=== PATIENT | female | born 1955 | race Hispanic/Latino ===

== ENCOUNTER 2018-02-02 19:20 | Emergency (ER) | payer OTHER ==
[2018-02-02] MEDS ORDERED: HYDROCODONE/ACETAMINOPHEN 7.5/325 MG 15 ML UDCUP ONE (19:34)
== END 2018-02-02 20:50 | disposition home or self-care (01) ==
LOC: EDH 19:20
DX: M62.838 Other muscle spasm (principal); M54.5 Low back pain; M25.559 Pain in unspecified hip; M54.2 Cervicalgia; I10 Essential (primary) hypertension; E78.5 Hyperlipidemia, unspecified; V49.49XA Driver injured in collision with other motor vehicles in traffic accident, initial encounter; Y93.89 Activity, other specified; Y92.89 Other specified places as the place of occurrence of the external cause; Y99.8 Other external cause status
CPT/HCPCS: 71045; 72040; 72100; 72170; 93005

== ENCOUNTER 2018-02-04 18:05 | Emergency (ER) | payer OTHER ==
[2018-02-04 19:59] LABS: APPEARANCE,URINE Clear (CLEAR); BILIRUBIN,URINE Negative (NEGATIVE); COLOR,URINE Yellow (YELLOW); GLUCOSE, URINE (UA) Negative (NEGATIVE); KETONES,URINE Negative (NEGATIVE); LEUKOCYTE ESTERASE ,URINE Small (NEGATIVE); NITRATE,URINE Positive (NEGATIVE); OCCULT BLOOD,URINE Nonhemolyzed Trace (NEGATIVE); PROTEIN,URINE Negative (NEGATIVE)
[2018-02-04 20:00] LABS: BASOPHILS % (AUTO) 0.5 % (0.0-5.0); EOSINOPHILS % (AUTO) 2.2 % (0.0-8.0); HEMATOCRIT 41.8 % (36-48); MEAN CORPUSCULAR HEMOGLOBIN 28.4 pg (27.0-33.0); MEAN CORPUSCULAR HGB CONC 33.8 g/dL (32.0-36.0); MEAN CORPUSCULAR VOLUME 84.1 fL (79-99); MONOCYTES % (AUTO) 7.7 % (3.0-13.0); NEUTROPHILS % (AUTO) 40.6 % (40.0-77.0); PLATELET COUNT (AUTO) 274 K/uL (130-400); RED BLOOD CELL COUNT(AUTO) 4.97 MIL/uL (4.00-5.50); RED CELL DISTRIBUTION WIDTH 13.9 % (11.0-15.5); WHITE BLOOD COUNT (AUTO) 9.1 K/uL (4.8-10.8)
[2018-02-04 20:09] LABS: CREATININE 0.8 mg/dL (0.5-1.5); POTASSIUM 3.9 mmol/L (3.5-5.1)
[2018-02-04 20:13] LABS: ALBUMIN 4.1 g/dL (3.5-5.0); BILIRUBIN,TOTAL 0.4 mg/dL (0.2-1.0); TOTAL PROTEIN, SERUM 7.7 g/dL (6.0-8.3)
[2018-02-04 20:17] LABS: BACTERIA,URINE Many /HPF (None Seen); SQUAMOUS EPITHELIAL CELL,UR None Seen /HPF (0-2)
[2018-02-04] MEDS ORDERED: SULFAMETHOX-TMP DS 800/160 TAB ONE (21:08)
== END 2018-02-04 21:17 | disposition home or self-care (01) ==
LOC: EDH 18:05
DX: S40.022A Contusion of left upper arm, initial encounter (principal); S40.021A Contusion of right upper arm, initial encounter; F07.81 Postconcussional syndrome; N30.00 Acute cystitis without hematuria; M54.2 Cervicalgia; M54.9 Dorsalgia, unspecified; I10 Essential (primary) hypertension; E78.5 Hyperlipidemia, unspecified; V49.49XA Driver injured in collision with other motor vehicles in traffic accident, initial encounter; Y93.89 Activity, other specified; Y92.89 Other specified places as the place of occurrence of the external cause; Y99.8 Other external cause status
CPT/HCPCS: 36415; 70450; 80053; 81001; 82550; 83690; 85025; 93005

== ENCOUNTER 2018-05-02 19:41 | Emergency (ER) | payer OTHER ==
[2018-05-02] MEDS ORDERED: ACETAMINOPHEN EXTRA STRENGTH 500 MG TABLET ONE (19:58)
[2018-05-02] MEDS ORDERED: DEXAMETHASONE SOD PHOSPHATE 10MG/ML 1ML VIAL ONE (19:58)
[2018-05-02] MEDS ORDERED: GUAIFENESIN-DM 200/20 MG 10 ML ONE (19:59)
[2018-05-02] MEDS ORDERED: ALBUTEROL SULFATE 0.083% 2.5 MG/3 ML INH IH ONE (20:01)
== END 2018-05-02 21:14 | disposition home or self-care (01) ==
LOC: EDH 19:41
DX: J20.9 Acute bronchitis, unspecified (principal); I10 Essential (primary) hypertension; K21.9 Gastro-esophageal reflux disease without esophagitis; E78.5 Hyperlipidemia, unspecified
CPT/HCPCS: 71046; 87804 ×2; 94640; 96372; 99284; J1100

== ENCOUNTER 2018-06-08 19:32 | Emergency (ER) | payer OTHER, MEDICARE ==
[2018-06-08 20:27] LABS: BASOPHILS % (AUTO) 0.6 % (0.0-5.0); EOSINOPHILS % (AUTO) 0.7 % (0.0-8.0); HEMATOCRIT 40.6 % (36-48); LYMPHOCYTES % (AUTO) 50.4 % (21.0-51.0); MEAN CORPUSCULAR HEMOGLOBIN 27.7 pg (27.0-33.0); MEAN CORPUSCULAR HGB CONC 32.9 g/dL (32.0-36.0); MEAN CORPUSCULAR VOLUME 84.2 fL (79-99); MONOCYTES % (AUTO) 7.2 % (3.0-13.0); NEUTROPHILS % (AUTO) 41.1 % (40.0-77.0); PLATELET COUNT (AUTO) 281 K/uL (130-400); RED BLOOD CELL COUNT(AUTO) 4.82 MIL/uL (4.00-5.50); RED CELL DISTRIBUTION WIDTH 14.2 % (11.0-15.5); WHITE BLOOD COUNT (AUTO) 7.6 K/uL (4.8-10.8)
[2018-06-08 20:40] LABS: INR 0.97 (0.85-1.15); PARTIAL THROMBOPLASTIN TIME 28.9 SEC (26.3-35.5); PROTHROMBIN TIME 10.2 SEC (9.6-11.6)
[2018-06-08 20:45] LABS: CREATININE 0.7 mg/dL (0.5-1.5); POTASSIUM 4.3 mmol/L (3.5-5.1)
[2018-06-08 20:47] LABS: ALBUMIN 4.2 g/dL (3.5-5.0); BILIRUBIN,TOTAL 0.4 mg/dL (0.2-1.0); TOTAL PROTEIN, SERUM 7.6 g/dL (6.0-8.3)
[2018-06-08 20:53] LABS: B-TYPE NATRIURETIC PEPTIDE 17 pg/mL (0-100)
== END 2018-06-08 22:01 | disposition home or self-care (01) ==
LOC: EDH 19:32
DX: I10 Essential (primary) hypertension (principal); F41.1 Generalized anxiety disorder; E78.5 Hyperlipidemia, unspecified; K21.9 Gastro-esophageal reflux disease without esophagitis
CPT/HCPCS: 36415; 80053; 82550; 83880; 84484; 85025; 85610; 85730; 93005

== ENCOUNTER 2024-04-23 13:38 | Emergency (ER) | payer MEDICARE, OTHER ==
[~2024-04-23] VITALS: Ht 154.9 cm; Wt 66.5 kg
[2024-04-23 14:25] LABS: BASOPHILS # (AUTO) 0.05 K/uL (0.00-0.20); BASOPHILS % (AUTO) 0.5 % (0.0-5.0); EOSINOPHILS % (AUTO) 2.2 % (0.0-8.0); IMMATURE GRANULOCYTE ABSOLUTE 0.03 K/uL (0-1); LYMPHOCYTES # (AUTO) 3.3 K/uL (1.0-4.8); LYMPHOCYTES % (AUTO) 36.2 % (21.0-51.0); MEAN CORPUSCULAR HEMOGLOBIN 28.5 pg (27.0-33.0); MEAN CORPUSCULAR HGB CONC 33.5 g/dL (32.0-36.0); MEAN CORPUSCULAR VOLUME 85.1 fL (79-99); MONOCYTES # (AUTO) 0.7 K/uL (0.1-1.0); MONOCYTES % (AUTO) 7.9 % (3.0-13.0); NEUTROPHILS # (AUTO) 4.8 K/uL (1.8-7.7); NEUTROPHILS % (AUTO) 52.9 % (40.0-77.0); PLATELET COUNT (AUTO) 296 K/uL (130-400); RED BLOOD CELL COUNT(AUTO) 5.05 MIL/uL (4.00-5.50); RED CELL DISTRIBUTION WIDTH 13.4 % (11.0-15.5); WHITE BLOOD COUNT (AUTO) 9.1 K/uL (4.8-10.8)
[2024-04-23 14:33] LABS: CREATININE 0.9 mg/dL (0.5-1.0); POTASSIUM 3.7 mmol/L (3.5-5.1)
[2024-04-23 14:42] LABS: ALBUMIN 3.7 g/dL (3.5-5.0); BILIRUBIN,DIRECT 0.1 mg/dL (0.0-0.3); BILIRUBIN,TOTAL 0.5 mg/dL (0.2-1.0); TOTAL PROTEIN, SERUM 7.3 g/dL (6.0-8.3)
--- NOTE | 2024-04-23 14:54 | ERN ---
ED Note History of Present Illness Stated Complaint: NAUSEA Chief Complaint: Nausea,Vomiting,Diarrhea Time Seen by MD: 13:55 Dictation: 69-year-old female presents to the ED for evaluation of nausea onset 2 days ago. Patient reports decreased oral intake, but denies any vomiting, diarrhea, chest pain or shortness a breath at this time. Allergies: Coded Allergies: No Known Drug Allergies (Unverified Allergy, Unknown, 04/23/24) Home Meds Active Scripts Ondansetron (Ondansetron Odt) 4 Mg Tab.rapdis, 4 MG PO BID for vomiting for 5 Days, #10 TAB Prov:ANNE MOODY MD 04/23/24 Past Medical History Past Medical History: High Cholesterol, Hypertension Surgical History: None Review of System Dictation Constitutional: Positive for decreased oral intake Negative for fever,chills, and weight loss Eyes: Negative for injury, pain,redness, and discharge ENT: Negative for injury,pain or swelling Cardiovascular: Negative for chest pain, palpitations, and edema Respiratory: Negative for shortness of breath, cough, and wheezing, Abdomen/GI: Positive for nausea Negative for abdominal pain, vomiting, diarrhea, and constipation Back: Negative for injury and pain : Negative for injury, bleeding and discharge MS/Extremity: Negative for injury and deformity Skin: Negative for rash, and discoloration Neuro: Negative for headache, weakness, numbness, tingling, and seizure Psych: Negative for suicide ideation, homicidal ideation, and hallucinations Initial Vital Sign VS Vital Signs Date Time Temp Pulse Resp B/P (MAP) Pulse Ox O2 Delivery O2 Flow Rate FiO2 04/23/24 13:42 97.2 68 16 154/85 100 Room Air 0 04/23/24 13:47 21 Physical Exam Dictation General: awake, alert, NAD Head/Face: Normocephalic, atraumatic Eyes: PERRL, EOMI, vision at baseline ENT: oral cavity clear, TMs clear, no signs of infection Neck: Trachea midline, supple, no nuchal rigidity Cardiovascular: RRR, normal S1/S2, No MRGs, no JVD Respiratory: CTAB, no respiratory distress, No rales or wheezes Abdomen: Soft, non-tender, non-distended, normal bowel sounds, no guarding or rebound. Skin: Warm, dry, normal turgor, no rash MS/Extremity: Pulses equal, no cyanosis, neurovascular intact, FROM Neuro: COAx4, GCS 15, strength 5/5, CN 2-12 intact, normal cerebellar exam, normal gait, Psych: Normal behavior, mood, and affect normal Results (Laboratory/Radiology) Laboratory/Radiology Labs Reviewed?: Yes EKG Comment: EKG 03/27/2024 time 4:51 p.m. ventricular rate 59, NY 150, QRS D 89, QT 446. Sinus rhythm. No STEMI ED Course ED Course Medical Decision Making MDM MDM: Differential diagnosis: Nausea, epigastric pain, gastroenteritis Previous outside records reviewed: Old ER visits. Need for hospitalization: Patient does not meet criteria for hospitalization. Need for emergency major/minor surgery: No Patient's prior external medical records from other ER visits were reviewed by me as indicated. Prior testing and results from previous visits were reviewed. Prior tests were taken into account with medical decision making and resource utilization, independent historian/historians were used to obtain complete medical history. I independently interpreted the test that were performed, results were reviewed by me and considered findings on radiology if ordered. Medical management and examination interpretation discussions were had by me with other qualified healthcare professionals as indicated for the patient's care. DX & DISP Disposition: Discharge Departure Impression: Primary Impression: Acute gastroenteritis Condition: Stable Scripts Ondansetron (Ondansetron Odt) 4 Mg Tab.rapdis 4 MG PO BID for vomiting for 5 Days, #10 TAB Prov: ANNE MOODY MD 04/23/24 Referrals: CELI PAGAN MD (PCP) ANNE MOODY MD Apr 23, 2024 14:54
[2024-04-23] MEDS: ondanSETRON 4MG INJ IVP ONE (15:25)
[2024-04-23] MEDS: 0.9%NACL 1000ML 1,000 ML IV ONE (15:26)
[2024-04-23 15:54] LABS: APPEARANCE,URINE CLEAR (CLEAR); BILIRUBIN,URINE NEGATIVE (NEGATIVE); COLOR,URINE COLORLESS (YELLOW); GLUCOSE, URINE (UA) NEGATIVE (NEGATIVE); KETONES,URINE NEGATIVE (NEGATIVE); LEUKOCYTE ESTERASE ,URINE NEGATIVE Leu/uL (NEGATIVE); NITRATE,URINE NEGATIVE (NEGATIVE); OCCULT BLOOD,URINE NEGATIVE (NEGATIVE); PH,URINE 5.5 (5.0-8.0); PROTEIN,URINE NEGATIVE (NEGATIVE); UROBILINOGEN,URINE 0.2 mg/dL (0.2-1.0)
[2024-04-23 15:57] LABS: ADD UA MICROSCOPIC YES
[2024-04-23 15:59] LABS: MUCUS,URINE RARE LPF (None Seen); RBC,URINE 0-1 /HPF (0-1); SQUAMOUS EPITHELIAL CELL,UR FEW /HPF (0-2)
--- NOTE | 2024-04-23 16:38 | HMCIMG ---
CT ABD/PEL WO CON RENAL/APPY REASON: flank pain COMPARISON: None. FINDINGS: Lung bases are clear. There are no focal liver lesions. There are normal-appearing kidneys.. Spleen and pancreas appear unremarkable. The gallbladder appears normal as well. Bowel loops appear unremarkable. This includes normal appearance of the appendix There is no evidence of free fluid or intraperitoneal air. There are no focal fluid collections. Aorta and retroperitoneum appear normal as do pelvic soft tissue structures. The anterior abdominal wall is intact. Osseous structures appear unremarkable. IMPRESSION: 1. Negative noncontrast CT abdomen and pelvis. CT was performed with one or more following dose reduction techniques: automated exposure control, adjustment of the mA and kv according to patient's size, or use of a iterative reconstruction technique.
[2024-04-23] MEDS ORDERED: ONDA-243 PO (16:53)
[2024-04-23 17:30] VITALS: BP 141/68; PULSE 72; RESP 18; TEMP 97.2; O2SAT 100
--- NOTE | 2024-04-24 07:50 | EKG ---
[facility] Test Date: 2024-04-23 Test Time: 16:51:04 Pat Name: LEENA REYNOLDS Department: ED Room: Gender: F Merchandise Support Associate: [id number] : 1955 Requested By: ANNE MOODY Order Number: [id number] Reading MD: Huan Marlow Measurements Intervals [place] Rate: 59 P: 38 SD: 158 QRS: -2 QRSD: 89 T: 41 QT: 446 QTc: 442 Interpretive Statements Sinus rhythm Compared to ECG 06/08/2018 20:04:37 No significant changes Electronically Signed On 04-24-2024 15:43:39 HOT MAN by Huan Marlow Please click the below link to view image of tracing.
== END 2024-04-23 17:44 | disposition home or self-care (01) ==
LOC: EDH 13:38
DX: K52.9 Noninfective gastroenteritis and colitis, unspecified (principal); E78.00 Pure hypercholesterolemia, unspecified; I10 Essential (primary) hypertension
CPT/HCPCS: 99285; 74176; 96374; 96361; 80076; 84484; 80048; 83690; 85025; 81001; 36415; 93005; J7030; J2405

== ENCOUNTER 2025-04-23 09:05 | Emergency (ER) | payer MEDICARE ==
[~2025-04-23] VITALS: Ht 149.9 cm; Wt 64.9 kg
[~2025-04-23 09:05] MED LIST: ONDA-243 PO
--- NOTE | 2025-04-23 10:15 | ERN ---
ED Note History of Present Illness Stated Complaint: DIZZINESS Chief Complaint: Dizzy/Light Headed Time Seen by MD: 10:04 Dictation: PATIENT IS A 70-YEAR-OLD FEMALE COMING IN TODAY WITH LEFT EAR PAIN WITH THE DIZZINESS WITH NAUSEA VOMITING FOR THE LAST TWO WEEKS. SHE DENIES ANY HEADACHE SHE HAS HAD NO FEVER. DENIES CHEST PAIN BACK PAIN SOB STATES SHE HAS BEEN TO A LOCAL URGENT CARE X2 AND STILL AND STATES SHE WAS EXAMINED BY THE DOCTOR HE LOOKED IN HER EAR AND SAID NOTHING WAS GOING ON HE DID NOT DO ANY LAB TESTING OR EKG. SHE STATES HE DID NOT PRESCRIBE ANY MEDICATIONS FOR THE DIZZINESS VERTIGO AND TOLD HER SHE NEEDED AN ENT. NIH IS 0 ON APPROACH. Allergies: Coded Allergies: No Known Drug Allergies (Unverified Allergy, Unknown, 04/23/24) Home Meds Active Scripts Ondansetron (Ondansetron Odt) 4 Mg Tab.rapdis, 4 MG PO BID for vomiting for 5 Days, #10 TAB Prov:ANNE MOODY MD 04/23/24 Past Medical History Past Medical History: High Cholesterol, Hypertension Surgical History: None History: Not Applicable RN Note Reviewed/Agreed w/PFSH: Yes Review of System Dictation VITAL SIGNS REVIEWED GENERAL APPEARANCE: ALERT, ORIENTED X 3, NO ACUTE DISTRESS, WELL DEVELOPED, NOURISHED. HEAD AND FACE: NON-TRAUMATIC. EYES: PERRL, PINK CONJUNCTIVAS, EYELID NO TRAUMA, ANTERIOR CHAMBER WITH ARCUS SENILIS. EARS: PINNAS INTACT AND NO SIGNS OF TRAUMA MILD ERYTHEMA TO LEFT OTIC CANAL. TMS INTACT WITH MILD EFFUSION MASTOID TENDERNESS BILATERALLY NOSE: NO DISCHARGE, NO BLEEDING. OROPHARYNX: MOUTH NORMAL, TONGUE PINK, PHARYNX CLEAR,NO ERYTHEMA, TONSILS NO EXUDATES, NO ABSCESSES NOTED, MUCOUS MEMBRANE MOIST NECK: SUPPLE, NON-TENDER, NO THYROMEGALY, NO MASSES, NO JVD, NO BRUITS BREAST:DEFERRED CHEST:NO TENDERNESS, NO CREPITUS, NO PARADOXICAL MOVEMENT, NO RETRACTIONS LUNGS:CLEAR, WELL-VENTILATED, SYMMETRIC, NO RALES, NO WHEEZING, NO RHONCHI, NO STRIDOR, GOOD BREATH SOUNDS BILATERALLY HEART: REGULAR RATE, REGULAR RHYTHM, NO MURMUR, NO GALLOPS VASCULAR: NO PERIPHERAL EDEMA, ABDOMEN: SOFT, POSITIVE BOWEL SOUNDS, NONDISTENDED, NO GUARDING, NONTENDER, NO REBOUND, NO MASSES NO HEPATOMEGALY, NO SPLENOMEGALY, NO CHANG'S SIGN, NO HERNIAS. RECTAL: DEFERRED GENITAL: DEFERRED NEUROLOGICAL: NORMAL SPEECH, MOTOR FUNCTION INTACT, SENSORY FUNCTION INTACT MUSCULOSKELETAL: NECK NONTENDER, FULL RANGE OF MOTION, BACK NONTENDER, FULL RANGE OF MOTION, EXTREMITIES: NONTENDER, FULL RANGE OF MOTION SKIN: COLOR PINK, DRY, NO TURGOR, NO RASH, NO LACERATIONS, NO ABRASIONS, NO CONTUSIONS. LYMPHATIC: DEFERRED Initial Vital Sign VS Vital Signs Date Time Temp Pulse Resp B/P (MAP) Pulse Ox O2 Delivery O2 Flow Rate FiO2 04/23/25 09:07 97.5 63 20 129/81 99 Room Air 0 Physical Exam Dictation VITAL SIGNS REVIEWED GENERAL APPEARANCE: ALERT, ORIENTED X 3, NO ACUTE DISTRESS, WELL DEVELOPED, NOURISHED. HEAD AND FACE: NON-TRAUMATIC. EYES: PERRL, PINK CONJUNCTIVAS, EYELID NO TRAUMA, ANTERIOR CHAMBER WITH ARCUS SENILIS. PERRLA/LEFT HORIZONTAL NYSTAGMUS EARS: PINNAS INTACT AND NO SIGNS OF TRAUMA LEFT EFFUSION TO TYMPANIC MEMBRANE. ALSO ERYTHEMA TO INFERIOR OTIC CANAL. WITH THE MASTOID TENDERNESS BILATERALLY NOSE: NO DISCHARGE, NO BLEEDING. OROPHARYNX: MOUTH NORMAL, TONGUE PINK, PHARYNX CLEAR,NO ERYTHEMA, TONSILS NO EXUDATES, NO ABSCESSES NOTED, MUCOUS MEMBRANE MOIST NECK: SUPPLE, NON-TENDER, NO THYROMEGALY, NO MASSES, NO JVD, NO BRUITS BREAST:DEFERRED CHEST:NO TENDERNESS, NO CREPITUS, NO PARADOXICAL MOVEMENT, NO RETRACTIONS LUNGS:CLEAR, WELL-VENTILATED, SYMMETRIC, NO RALES, NO WHEEZING, NO RHONCHI, NO STRIDOR, GOOD BREATH SOUNDS BILATERALLY HEART: REGULAR RATE, REGULAR RHYTHM, NO MURMUR, NO GALLOPS VASCULAR: NO PERIPHERAL EDEMA, ABDOMEN: SOFT, POSITIVE BOWEL SOUNDS, NONDISTENDED, NO GUARDING, NONTENDER, NO REBOUND, NO MASSES NO HEPATOMEGALY, NO SPLENOMEGALY, NO CHANG'S SIGN, NO HERNIAS. RECTAL: DEFERRED GENITAL: DEFERRED NEUROLOGICAL: NORMAL SPEECH, MOTOR FUNCTION INTACT, SENSORY FUNCTION INTACT MUSCULOSKELETAL: NECK NONTENDER, FULL RANGE OF MOTION, BACK NONTENDER, FULL RANGE OF MOTION, EXTREMITIES: NONTENDER, FULL RANGE OF MOTION SKIN: COLOR PINK, DRY, NO TURGOR, NO RASH, NO LACERATIONS, NO ABRASIONS, NO CONTUSIONS. LYMPHATIC: DEFERRED Results (Laboratory/Radiology) Laboratory/Radiology Laboratory Tests Test 04/23/25 10:36 04/23/25 10:39 White Blood Count 6.7 K/uL (4.8-10.8) Red Blood Count 5.22 MIL/uL (4.00-5.50) Hemoglobin 14.7 g/dL (12.0-16.0) Hematocrit 43.4 % (36-48) Mean Corpuscular Volume 83.1 fL (79-99) Mean Corpuscular Hemoglobin 28.2 pg (27.0-33.0) Mean Corpuscular Hemoglobin Concent 33.9 g/dL (32.0-36.0) Red Cell Distribution Width 12.9 % (11.0-15.5) Platelet Count 253 K/uL (130-400) Mean Platelet Volume 9.9 fL (7.5-10.5) Immature Granulocyte % (Auto) 0.3 % (0-1) Neutrophils (%) (Auto) 47.0 % (40.0-77.0) Lymphocytes (%) (Auto) 42.1 % (21.0-51.0) Monocytes (%) (Auto) 7.9 % (3.0-13.0) Eosinophils (%) (Auto) 2.1 % (0.0-8.0) Basophils (%) (Auto) 0.6 % (0.0-5.0) Neutrophils # (Auto) 3.2 K/uL (1.8-7.7) Lymphocytes # (Auto) 2.8 K/uL (1.0-4.8) Monocytes # (Auto) 0.5 K/uL (0.1-1.0) Eosinophils # (Auto) 0.14 K/uL (0.00-0.70) Basophils # (Auto) 0.04 K/uL (0.00-0.20) Absolute Immature Granulocyte (auto 0.02 K/uL (0-1) Nucleated Red Blood Cells 0.0 % (0.0-0.19) Sodium Level 146 mmol/L (136-145) H Potassium Level 3.5 mmol/L (3.5-5.1) Chloride Level 108 mmol/L (101-111) Carbon Dioxide Level 30 mmol/L (21-32) Blood Urea Nitrogen 11 mg/dL (7-18) Creatinine 0.6 mg/dL (0.5-1.0) Glomerular Filtration Rate Calc 95 mL/min (>90) Random Glucose 102 mg/dL (70-105) Total Calcium 9.3 mg/dL (8.5-10.1) Troponin I High Sensitivity 7 ng/L (4-50) Urine Color YELLOW (YELLOW) Urine Appearance CLOUDY (CLEAR) H Urine pH 5.5 (5.0-8.0) Urine Specific [place] 1.019 (1.001-1.031) Urine Protein NEGATIVE mg/dL (NEGATIVE) Urine Glucose (UA) NEGATIVE mg/dL (NEGATIVE) Urine Ketones NEGATIVE mg/dL (NEGATIVE) Urine Occult Blood NEGATIVE (NEGATIVE) Urine Nitrate 2+ (NEGATIVE) H Urine Bilirubin NEGATIVE mg/dL (NEGATIVE) Urine Urobilinogen 0.2 mg/dL (0.2-1.0) Urine Leukocyte Esterase NEGATIVE Kyle/uL Urine RBC 51-100 /HPF (0-1) H Urine WBC 11-25 /HPF (0-1) H Urine Squamous Epithelial Cells FEW /HPF (0-2) Urine Other Crystals (Auto) 16 /HPF (None Seen) Urine Bacteria MOD /HPF (None Seen) Urine Hyaline Casts 2-5 /LPF (0-1 /LPF) H Urine Other Casts 1 /LPF (None Seen) Urine Yeast RARE /HPF (None Seen) DINGS BRAIN PARENCHYMA There is diffuse cerebral volume loss with prominence of the cortical sulci and ventricles, compatible with chronic age-related atrophy. Scattered small hypodense foci are present in the bilateral frontoparietal deep and subcortical white matter, in keeping with chronic small vessel ischemic change. No acute intraparenchymal hemorrhage, mass lesion, or CT evidence of an acute territorial infarct is identified. No midline shift or extra-axial fluid collection is seen. VENTRICULAR SYSTEM AND CSF SPACES Ventricles are proportionately enlarged in relation to the degree of parenchymal volume loss without features of hydrocephalus. Basal cisterns are patent. ORBITS Globes, optic nerves, and extraocular muscles are unremarkable. PARANASAL SINUSES AND MASTOID AIR CELLS Paranasal sinuses and mastoid air cells are clear. CALVARIUM AND EXTRACRANIAL SOFT TISSUES Calvarium is intact without fracture. Scalp and extracranial soft tissues are unremarkable. IMPRESSION * No acute intracranial abnormality; specifically, no CT evidence of acute territorial infarct, intracranial hemorrhage, mass effect, or hydrocephalus. * Diffuse cerebral volume loss with chronic small vessel ischemic changes in the bilateral frontoparietal white matter. /[place] Labs Reviewed?: Yes EKG Comment: 1115/EKG SINUS BRADYCARDIA/HEART RATE 59/AXIS NORMAL/NO ECTOPY ED Course ED Course Orders Procedure Category Date Status Time Ct Head/Brain W/O CT 04/23/25 Resulted Contrast 10:11 Dexamethasone 4mg/Ml PHA 04/23/25 Complete 1ml Vial (Dexametha 10:30 Meclizine Hcl 25 Mg PHA 04/23/25 Complete (Antivert 25 Mg) 10:30 Cbc With Differential LAB 04/23/25 Complete 10:11 Troponin I High LAB 04/23/25 Complete Sensitivity 10:11 12 Lead Ekg Tracing- EKG 04/23/25 Complete Technical 10:11 0.9%Nacl 1000ml (Ns PHA 04/23/25 Complete 1000ml) 10:30 Ondansetron 4mg Inj PHA 04/23/25 Complete (Zofran 4mg Inj) 10:30 Basic Metabolic Panel LAB 04/23/25 Complete 10:11 Urinalysis Profile LAB 04/23/25 Complete 10:39 Culture Urine WES 04/23/25 In Process 10:52 Ceftriaxone 1g Vial PHA 04/23/25 Complete (Rocephine 1g Inj) 12:00 Current Medications Medications (Trade) Dose Ordered Sig/[place]on Route PRN Reason Start Time Stop Time Status Last Admin Dose Admin Ceftriaxone Sodium (ROCEphine 1G INJ) 1 gm ONCE ONCE IVPB 04/23/25 12:00 04/23/25 12:01 DC Dexamethasone Sodium Phosphate (dexaMETHasone 4MG/ML 1ML VIAL) 8 mg ONCE ONCE IVP 04/23/25 10:30 04/23/25 10:31 DC 04/23/25 11:00 Meclizine HCl (ANTIvert 25 mg) 50 mg ONCE ONCE PO 04/23/25 10:30 04/23/25 10:31 DC 04/23/25 11:01 Ondansetron HCl (zoFRAN 4MG INJ) 4 mg ONCE ONCE IVP 04/23/25 10:30 04/23/25 10:31 DC 04/23/25 11:00 Sodium Chloride 1,000 ml @ 0 mls/hr ONCE ONCE IV 04/23/25 10:30 04/23/25 10:31 DC 04/23/25 11:00 Vital Signs Date Time Temp Pulse Resp B/P (MAP) Pulse Ox O2 Delivery O2 Flow Rate FiO2 04/23/25 09:07 97.5 63 20 129/81 99 Room Air 0 1200/PATIENT SAID SHE FEELS MARKEDLY IMPROVED AFTER FLUIDS MECLIZINE AND DECADRON. SHE IS AWARE SHE HAS A AN ACUTE URINARY TRACT INFECTION WITH A LEFT ACUTE LA BYRINTHITIS AND VERTIGO. GIVEN A LIST OF PRIMARY CARE DOCTORS ON STAFF TOLD TO FOLLOW UP IN THE NEXT SEVERAL DAYS NIH REMAINS 0 HEART Score Response (Comments) Value History: Low suspicion (0) 0 Age: > 65yrs (+2) 2 Risk Factors: 1-2 risk factors (+1) 1 Initial Troponin: Normal limit (0) 0 Total 3 Medical Decision Making MDM MDM: DIFFERENTIAL DIAGNOSIS: ACS/AMI/ARRHYTHMIA/VERTIGO/LABYRINTHITIS/ELECTROLYTE IMBALANCE/DEHYDRATION/UTI/CENTRAL NERVOUS SYSTEM LESION RATIONALE: TESTS CONSIDERED AND ORDERED SECONDARY TO SHARED DECISION MAKING INCLUDE: LABS/RADIOLOGY/EKG PREVIOUS OUTSIDE RECORDS REVIEWED: OLD ER VISITS. RISK OF COMPLICATION AND/OR MORBIDITY OR MORTALITY OF PATIENT MANAGEMENT: NONE MEDICATIONS-PER MEDICATION RECONCILIATION NEED FOR HOSPITALIZATION: PATIENT DOES NOT MEET CRITERIA FOR HOSPITALIZATION. NONE NEED FOR EMERGENCY MAJOR/MINOR SURGERY: NO THERE ARE NO SOCIAL CONCERNS WITH THIS PATIENT. PRESCRIPTION DRUG MANAGEMENT AUGMENTIN/MEDROL/MECLIZINE/ZOFRAN. PRESCRIPTIONS WILL INCLUDE SYMPTOMATIC CARE PATIENT'S PRIOR EXTERNAL MEDICAL RECORDS FROM OTHER ER VISITS WERE REVIEWED BY ME INDICATED. PRIOR TESTING AND RESULTS FROM PREVIOUS VISITS WERE REVIEWED. PRIOR TESTS WERE TAKEN INTO ACCOUNT WITH MEDICAL DECISION MAKING AND RESOURCE UTILIZATION, INDEPENDENT HISTORIAN/HISTORIANS WERE USED TO OBTAIN COMPLETE MEDICAL HISTORY. I INDEPENDENTLY INTERPRETED THE TEST THAT WERE PERFORMED, RESULTS WERE REVIEWED BY ME AND CONSIDERED FINDINGS ON RADIOLOGY IF ORDERED. MEDICAL MANAGEMENT AND EXAMINATION INTERPRETATION DISCUSSIONS WERE HAD BY ME WITH OTHER QUALIFIED HEALTHCARE PROFESSIONALS INDICATED FOR THE PATIENT'S CARE. DX & DISP Disposition: Discharge Departure Impression: Primary Impression: Acute labyrinthitis Additional Impressions: Vertigo, Acute UTI, Nausea Condition: Stable Scripts Ofloxacin (Ofloxacin) 0.3 % Drops 5 DROP OTIC BID for 7 Days, #5 ML 0 Refills FIVE DROPS LEFT EAR WITH COTTON TWICE A DAY FOR SEVEN DAYS. Prov: RHEINER,JUSTINE P DARRYL 04/23/25 Methylprednisolone (Medrol) 4 Mg Tab.ds.pk 1 TAB PO AD for 6 Days, #21 TAB 0 Refills 6 on day 1 then reduce by one tablet daily until gone Prov: JUSTINE POWER DYNAMITE CARTRIDGE CRIMPER 04/23/25 Meclizine HCl (Meclizine HCl) 25 Mg Tablet 25 MG PO TID for vertigo, #30 TAB 0 Refills Prov: JUSTINE POWER DYNAMITE CARTRIDGE CRIMPER 04/23/25 Amoxicillin/Potassium Clav (Amox Tr-K Clv 875-125 mg Tab) 875 Mg-125 Mg Tablet 1 EACH PO BID for 5 Days, #10 TAB 0 Refills Prov: JUSTINE POWER DYNAMITE CARTRIDGE CRIMPER 04/23/25 Additional Instructions: FOLLOW-UP WITH PRIMARY CARE PROVIDER IN 1 TO 2 DAYS. TAKE MEDICATIONS DIRECTED HERE IN THE EMERGENCY ROOM. OKAY TO CONTINUE HOME MEDICATIONS UNLESS OTHERWISE DISCUSSED DURING YOUR VISIT IN THE EMERGENCY ROOM TODAY. RETURN TO YOUR NEAREST EMERGENCY ROOM IF SYMPTOMS WORSEN OR IF THERE IS NO IMPROVEMENT. CALL 911 IF YOU NEED IMMEDIATE ASSISTANCE. TAKE TYLENOL OR MOTRIN [id number] NEEDED AND IF NO CONTRAINDICATIONS ARE PRESENT. INCREASE ORAL HYDRATION. A WOUND CULTURE OR URINE CULTURE WAS ORDERED HERE IN THE EMERGENCY ROOM DEPARTMENT PLEASE FOLLOW-UP WITH PRIMARY CARE PROVIDER AND ADVISE THEM TO GET REPEAT PORTS FROM OUR FACILITY. IF YOU HAD ANY DENNISE WRAP/SPLINTS THAT WERE APPLIED HERE, PLEASE DO NOT REMOVE THEM UNTIL YOU SEE YOUR PRIMARY CARE OR SPECIALTY. TAKE AUGMENTIN DIRECTED UNTIL GONE. TAKE MECLIZINE EVERY 8 HOURS FOR THE NEXT THREE DAYS. TAKE MEDROL DOSEPAK DIRECTED UNTIL GONE. FOLLOW UP WITH ONE OF THE PRIMARY CARE DOCTORS ON THE LIST GIVEN TO YOU IN THE NEXT 2-3 DAYS IF NO IMPROVEMENT Referrals: CELI PAGAN MD (PCP) Time of Disposition: 12:04 I have reviewed the case, and I agree with, Diagnosis and Plan JUSTINE POWER DARRYL Apr 23, 2025 10:15
[2025-04-23 10:46] LABS: IMMATURE GRANULOCYTE ABSOLUTE 0.02 K/uL (0-1); NUCLEATED RED BLOOD CELLS 0.0 % (0.0-0.19); PLATELET COUNT (AUTO) 253 K/uL (130-400); RED BLOOD CELL COUNT(AUTO) 5.22 MIL/uL (4.00-5.50); RED CELL DISTRIBUTION WIDTH 12.9 % (11.0-15.5); WHITE BLOOD COUNT (AUTO) 6.7 K/uL (4.8-10.8)
[2025-04-23 10:47] LABS: APPEARANCE,URINE CLOUDY (CLEAR); GLUCOSE, URINE (UA) NEGATIVE (NEGATIVE); LEUKOCYTE ESTERASE ,URINE NEGATIVE Leu/uL (NEGATIVE); NITRATE,URINE 2+ (NEGATIVE); OCCULT BLOOD,URINE NEGATIVE (NEGATIVE)
[2025-04-23 10:51] LABS: ADD UA MICROSCOPIC YES
[2025-04-23 10:52] LABS: CREATININE 0.6 mg/dL (0.5-1.0); GLOMERULAR FILTR. RATE CALC 95.0 mL/min (>90); GLUCOSE,RANDOM 102.0 mg/dL (70-105); SODIUM SERUM 146.0 mmol/L (136-145); UREA NITROGEN, BLOOD 11.0 mg/dL (7-18)
[2025-04-23 10:54] LABS: OTHER CASTS, URINE 1 /LPF (None Seen); SQUAMOUS EPITHELIAL CELL,UR FEW /HPF (0-2); UNCLASSIFIED CRYSTAL 16 /HPF (None Seen); YEAST,URINE BUDDING RARE /HPF (None Seen)
[2025-04-23] MEDS: 0.9%NACL 1000ML 1,000 ML IV ONE (11:00)
--- NOTE | 2025-04-23 11:18 | EKG ---
[facility] Test Date: 2025-04-23 Test Time: 11:15:05 Pat Name: LEENA REYNOLDS Department: ED Room: Gender: F Executive Producer Promos: [phone] : 1955 Requested By: JUSTINE POWER Order Number: [id number] Reading MD: Jacob Sanz Measurements Intervals [place] Rate: 59 P: 77 ME: 172 QRS: 0 QRSD: 98 T: 19 QT: 465 QTc: 460 Interpretive Statements Sinus rhythm Compared to ECG 04/23/2024 16:51:04 No significant changes Electronically Signed On 04-23-2025 21:11:45 [employer]ITIONAL [employer]ACTITIONER by Jacob Sanz Please click the below link to view image of tracing.
--- NOTE | 2025-04-23 11:50 | HMCIMG ---
STUDY CT Head without IV contrast HISTORY Vertigo and dizziness for the last two weeks TECHNIQUE Axial computed tomography images of the head/brain were obtained without intravenous contrast. COMPARISON CT head/brain without contrast dated 02/04/2018 19:29 EDT. FINDINGS BRAIN PARENCHYMA There is diffuse cerebral volume loss with prominence of the cortical sulci and ventricles, compatible with chronic age-related atrophy. Scattered small hypodense foci are present in the bilateral frontoparietal deep and subcortical white matter, in keeping with chronic small vessel ischemic change. No acute intraparenchymal hemorrhage, mass lesion, or CT evidence of an acute territorial infarct is identified. No midline shift or extra-axial fluid collection is seen. VENTRICULAR SYSTEM AND CSF SPACES Ventricles are proportionately enlarged in relation to the degree of parenchymal volume loss without features of hydrocephalus. Basal cisterns are patent. ORBITS Globes, optic nerves, and extraocular muscles are unremarkable. PARANASAL SINUSES AND MASTOID AIR CELLS Paranasal sinuses and mastoid air cells are clear. CALVARIUM AND EXTRACRANIAL SOFT TISSUES Calvarium is intact without fracture. Scalp and extracranial soft tissues are unremarkable. IMPRESSION * No acute intracranial abnormality; specifically, no CT evidence of acute territorial infarct, intracranial hemorrhage, mass effect, or hydrocephalus. * Diffuse cerebral volume loss with chronic small vessel ischemic changes in the bilateral frontoparietal white matter. /[place]
[2025-04-23] MEDS ORDERED: MECL-302 PO (12:06)
[2025-04-23] MEDS ORDERED: OFLO5DRO21 OTIC (12:06)
[2025-04-23] MEDS ORDERED: METH4TAB3 PO (12:06)
[2025-04-23] MEDS ORDERED: AMOX1TAB16 PO (12:06)
[2025-04-23 12:57] VITALS: BP 134/90; PULSE 69; RESP 17; TEMP 97.5; O2SAT 98
== END 2025-04-23 12:58 | disposition home or self-care (01) ==
LOC: EDH 09:05
DX: H83.02 Labyrinthitis, left ear (principal); R42 Dizziness and giddiness; N39.0 Urinary tract infection, site not specified; R11.2 Nausea with vomiting, unspecified; I10 Essential (primary) hypertension; E78.00 Pure hypercholesterolemia, unspecified
CPT/HCPCS: 99285; 96365; 70450; 96375; 96361; 84484; 80048; 85025; 87086 ×2; 87186; 81001; 36415; 93005; J1100; J7030; J0696; J2405